=== PATIENT | male | born 1965 | race Two or more races ===

== ENCOUNTER 2021-08-09 06:29 | Outpatient (REF) | payer OTHER, SELFPAY ==
[2021-08-09 07:53] LABS: Alanine Aminotransferase 21 U/L (0-40); Albumin Level 4.3 g/dL (3.5-5.0); Alkaline Phosphatase 103 U/L (39-117); Anion Gap 10 (12-20); Aspartate Amino Transferase 13 U/L (5-37); Bilirubin Total 0.5 mg/dL (0.0-1.0); Blood Urea Nitrogen 13 mg/dL (9-16); Calcium 10.2 mg/dL (8.4-10.2); Carbon Dioxide 30 mmol/L (22-29); Chloride 103 mmol/L (96-108); Cholesterol 236 mg/dL; Estimated Glomerular Filt Rate > 60; Glucose Fasting 247 mg/dL (60-99); HDL Cholesterol 36 mg/dL; LDL Cholesterol Calculated 143 mg/dl; Potassium 4.4 mmol/L (3.3-5.1); Sodium 139 mmol/L (135-145); Total Protein 7.4 g/dL (6.5-8.0); Triglycerides 288 mg/dL
[2021-08-09 08:14] LABS: Creatinine Urine 152.02 mg/dL; Microalbum/Creatinine Ratio Ur 6.5 ug/mg cr
[2021-08-09 08:21] LABS: Estimated Average Glucose 226 mg/dL; Hemoglobin A1c % 9.5 %
[2021-08-14 14:37] LABS: Vitamin D 25-OH, D2 7 ng/mL; Vitamin D 25-OH, D3 13 ng/mL; Vitamin D 25-OH, Total 20 ng/mL (30-100)
== END 2021-08-09 06:30 | disposition home or self-care (01) ==
LOC: HO.LAB 06:29
PROVIDERS: PCP Internal Medicine; Visit Provider Internal Medicine
DX: E11.40 Type 2 diabetes mellitus with diabetic neuropathy, unspecified (principal); E55.9 Vitamin D deficiency, unspecified; E78.5 Hyperlipidemia, unspecified
CPT/HCPCS: 36415; 80053; 80061; 82043; 82306; 83036

== ENCOUNTER 2022-01-08 10:00 | Outpatient (REF) | payer OTHER, SELFPAY ==
[2022-01-08 10:15] LABS: MANUAL DIFF FLAG NO
[2022-01-08 10:53] LABS: Basophils Percent Auto 0.5 % (0-2); Eosinophils Absolute Auto 0.1 X10*3/uL (0.0-0.4); Eosinophils Percent Auto 2.3 % (0-4); Hematocrit 42.9 % (42.0-52.0); Hemoglobin 14.1 g/dl (14.0-18.0); Imm Gran Abs Auto 0.01 X10*3/uL (0.00-0.03); Imm Gran Pct Auto 0.2 % (0.0-0.4); Lymphocytes Absolute Auto 2.2 X10*3/uL (1.2-4.9); Mean Corpuscular HGB Conc 32.9 g/dl (31.0-36.0); Mean Corpuscular Hemoglobin 28.8 pg (27.0-33.0); Mean Corpuscular Volume 87.6 fL (80.0-98.0); Mean Platelet Volume 10.7 fL (9.4-12.4); Monocytes Absolute Auto 0.6 X10*3/uL (0.1-1.2); Monocytes Percent Auto 10.8 % (2-11); Neutrophils Absolute Auto 2.7 x10*3/uL (2.0-8.3); Neutrophils Percent Auto 47.2 % (45-73); Platelet Count 216 X10*3/uL (160-400); Red Cell Distribution Width 12.7 % (11.0-16.0); White Blood Count 5.7 X10*3/uL (4.8-10.8)
[2022-01-08 11:15] LABS: Alanine Aminotransferase 20 U/L (0-40); Albumin Level 4.4 g/dL (3.5-5.0); Alkaline Phosphatase 93 U/L (39-117); Anion Gap 13 (12-20); Aspartate Amino Transferase 14 U/L (5-37); Bilirubin Total 0.6 mg/dL (0.0-1.0); Blood Urea Nitrogen 12 mg/dL (9-16); Calcium 10.1 mg/dL (8.4-10.2); Carbon Dioxide 29 mmol/L (22-29); Chloride 100 mmol/L (96-108); Cholesterol 256 mg/dL; Estimated Glomerular Filt Rate > 60; Glucose Fasting 218 mg/dL (60-99); HDL Cholesterol 35 mg/dL; Iron 106 mcg/dL (45-160); LDL Cholesterol Calculated 168 mg/dl; Percent Iron Saturation 28 % (15-50); Sodium 137 mmol/L (135-145); Total Iron Binding Capacity 376 mcg/dL (228-428); Total Protein 7.3 g/dL (6.5-8.0); Triglycerides 265 mg/dL; Unsaturated Iron Binding 270 ug/dL
[2022-01-08 11:41] LABS: Vitamin D 25-OH Total 19.7 ng/mL (>30)
[2022-01-08 11:51] LABS: Creatinine Urine 75.38 mg/dL; Microalbum/Creatinine Ratio Ur 6.6 ug/mg cr
== END 2022-01-08 10:01 | disposition home or self-care (01) ==
LOC: HO.LAB 10:00
PROVIDERS: PCP Internal Medicine; Visit Provider Internal Medicine
DX: E11.9 Type 2 diabetes mellitus without complications (principal); E78.5 Hyperlipidemia, unspecified; D64.9 Anemia, unspecified; E55.9 Vitamin D deficiency, unspecified
CPT/HCPCS: 36415; 80053; 80061; 82043; 82306; 83540; 85025

== ENCOUNTER 2022-05-27 09:59 | Outpatient (REF) | payer OTHER, SELFPAY ==
[2022-05-27 11:09] LABS: Microalbum/Creatinine Ratio Ur 5.6 ug/mg cr
[2022-05-27 11:13] LABS: Alanine Aminotransferase 21 U/L (0-40); Albumin Level 4.3 g/dL (3.5-5.0); Alkaline Phosphatase 73 U/L (39-117); Anion Gap 12 (12-20); Aspartate Amino Transferase 15 U/L (5-37); Bilirubin Total 0.7 mg/dL (0.0-1.0); Blood Urea Nitrogen 11 mg/dL (9-16); Calcium 9.8 mg/dL (8.4-10.2); Carbon Dioxide 25 mmol/L (22-29); Chloride 107 mmol/L (96-108); Cholesterol 170 mg/dL; Estimated Glomerular Filt Rate > 60; Glucose Fasting 123 mg/dL (60-99); HDL Cholesterol 36 mg/dL; LDL Cholesterol Calculated 108 mg/dl; Potassium 4.1 mmol/L (3.3-5.1); Sodium 140 mmol/L (135-145); Total Protein 6.9 g/dL (6.5-8.0); Triglycerides 132 mg/dL
[2022-05-27 11:33] LABS: Vitamin D 25-OH Total 25.4 ng/mL (>30)
== END 2022-05-27 10:00 | disposition home or self-care (01) ==
LOC: HO.LAB 09:59
PROVIDERS: PCP Internal Medicine; Visit Provider Internal Medicine
DX: Z00.00 Encounter for general adult medical examination without abnormal findings (principal); E78.5 Hyperlipidemia, unspecified; E11.9 Type 2 diabetes mellitus without complications; E55.9 Vitamin D deficiency, unspecified
CPT/HCPCS: 36415; 80053; 80061; 82043; 82306

== ENCOUNTER 2022-10-07 10:31 | Outpatient (REF) | payer OTHER, SELFPAY ==
[2022-10-07 12:10] LABS: Alanine Aminotransferase 25 U/L (0-40); Albumin Level 4.2 g/dL (3.5-5.0); Alkaline Phosphatase 82 U/L (39-117); Anion Gap 12 (12-20); Aspartate Amino Transferase 17 U/L (5-37); Bilirubin Total 0.7 mg/dL (0.0-1.0); Blood Urea Nitrogen 10 mg/dL (9-16); Carbon Dioxide 27 mmol/L (22-29); Chloride 105 mmol/L (96-108); Cholesterol 120 mg/dL; Estimated Glomerular Filt Rate > 60; Glucose Fasting 183 mg/dL (60-99); HDL Cholesterol 35 mg/dL; LDL Cholesterol Calculated 73 mg/dl; Potassium 4.2 mmol/L (3.3-5.1); Sodium 140 mmol/L (135-145); Total Protein 7.3 g/dL (6.5-8.0); Triglycerides 64 mg/dL
[2022-10-07 12:19] LABS: Vitamin D 25-OH Total 32.5 ng/mL (>30)
[2022-10-07 12:29] LABS: Creatinine Urine 85.89 mg/dL; Microalbum/Creatinine Ratio Ur 6.9 ug/mg cr
== END 2022-10-07 10:32 | disposition home or self-care (01) ==
LOC: HO.LAB 10:31
PROVIDERS: PCP Internal Medicine; Visit Provider Internal Medicine
DX: E78.2 Mixed hyperlipidemia (principal); E11.9 Type 2 diabetes mellitus without complications; E55.9 Vitamin D deficiency, unspecified
CPT/HCPCS: 36415; 80053; 80061; 82043; 82306

== ENCOUNTER 2022-10-24 09:14 | Outpatient (REF) | payer OTHER, SELFPAY ==
--- NOTE | ~2022-10-24 | US_ITS ---
EXAMINATION: US ABDOMEN LIMITED CLINICAL INFORMATION: Umbilical hernia without obstruction or gangrene. COMPARISON: CT abdomen and pelvis 05/07/2019. TECHNIQUE: Real-time imaging of the umbilicus. FINDINGS: Ultrasound of the umbilicus demonstrates a fat-containing hernia in the area indicated by the patient, similar to the previous CT scan. This measures 1.3 cm in maximal dimension. US/US abdomen limited IMPRESSION: Fat-containing umbilical hernia.
== END 2022-10-24 09:15 | disposition home or self-care (01) ==
LOC: HO.US 09:14
PROVIDERS: PCP Internal Medicine; Visit Provider Internal Medicine
DX: K42.9 Umbilical hernia without obstruction or gangrene (principal)
CPT/HCPCS: 76705; 99202

== ENCOUNTER 2022-11-20 09:39 | Day surgery (SDC) | payer OTHER, SELFPAY ==
[2022-11-17 14:29] VITALS: BMI 27.2
--- NOTE | 2022-11-19 09:03 | MHC.SHP ---
Pre-Procedural Eval Section A Date of Service: 11/19/22 The patient is an INPATIENT: No Changes since office visit: No Cold of Flu in the past 2 weeks, No New Medical Problems, No Changes in Medication and No Patient answered all questions The History & Physical has been completed within 30 days and I have reviewed it.: Yes Section B Chief Complaint: Umbilical hernia without obstruction or gangrene Allergies: Allergies Allergy/AdvReac Type Severity Reaction Status Date / Time No Known Allergies Allergy Verified 11/17/22 14:28 Plan I have reviewed the history and physical and performed a pertinent physical examination on my patient. No changes have occurred unless specified. Time Spent With Patient Time: Total time managing care of this patient today ____ minutes.
[2022-11-20 10:57] LABS: Glucose, Whole Blood 146 mg/dL (60-115)
[2022-11-20 11:27] VITALS: BP 134/97; PULSE 67; RESP 18; TEMP 36.1; O2SAT 97
[2022-11-20] MEDS: Lactated Ringers 1,000 ML 50 ML IVCONT (11:38)
--- NOTE | 2022-11-20 12:29 | HO.ANESPROP2 ---
HPI - Anesthesia Eval Consult details Narrative: for hrnia repair PMFSH Active Problems Active Problems: All Active Problems (Updated 11/17/22 @ 14:29 by Justa Joy RN) Fall (Acute) Right-sided chest pain (Acute) Essential hypertension (Acute) Onychomycosis (Acute) Hypovitaminosis D (Acute) Physical exam (Acute) Umbilical hernia (Acute) Mixed hyperlipidemia (Acute) Diabetes mellitus (Acute) Past Medical History Medical History (Updated 11/17/22 @ 14:29 by Justa Joy RN) Diabetes mellitus History of renal calculi HTN (hypertension) Mixed hyperlipidemia Sciatica Family History Family History Father Diabetes Mother No problems noted. Maternal Grandmother No problems noted. Maternal Grandfather Stroke Paternal Grandmother Diabetes Paternal Grandfather No problems noted. Family history of problems with anesthesia: No Surgical History Surgical History (Updated 11/17/22 @ 14:27 by Justa Joy RN) History of esophagogastroduodenoscopy (EGD) History of Problems with Anesthesia: No Social History Social History Housing: Apartment Are you a primary animal care attendant to a significant other at home: No Do you presently have visiting nurse or other home services: No Alcohol intake: never Patient Tobacco Use Status: Never used Tobacco Tobacco use type: Cigarette e-Cigarette/Vaping Use: Never Used Second Hand Smoke Exposure: No Use of substances other than those prescribed or required for medical reasons: No Have you been hit, kicked, punched, or otherwise hurt by someone within the past year? If so, by whom?: No Are you DNR?: No Advance Directives: No Advance Directives Information Provided: Yes Advance Directives on File: No Recently lost weight without trying: No Nutrition Risks: No Nutritional Risk Poor oral hygiene: No service: No Current occupational status: employed Current occupational exposures/hazards: No Cognitive needs: No Hearing needs: No Vision needs: Yes Meds Allergies Allergy/AdvReac Type Severity Reaction Status Date / Time No Known Allergies Allergy Verified 11/17/22 14:28 Active Medications: Current Medications Lactated Ringer's (Lr) 1,000 mls @ 50 mls/hr IVCONT .Q20H ROME Last Admin: 11/20/22 11:38 Dose: 50 mls/hr Exam Exam Date and Time: November 20, 2022 1229 Height,Weight and Vital Signs: Height 5 ft 11 in Weight 88.451 kg Last Vital Signs Temp 96.9 F 11/20/22 11:27 Pulse 67 11/20/22 11:27 Resp 18 11/20/22 11:27 BP 134/97 H 11/20/22 11:27 Pulse Ox 97 11/20/22 11:27 O2 Del Method Room Air 11/20/22 11:27 Pertinent Lab Results Pertinent Lab Results: Laboratory Tests 11/20/22 10:53 POC Glucose 146 H Airway Mallampati Class: I TM Dist: >3cm Neck ROM: Full Loose/Missing/Broken Teeth: No Heart: rr Lungs: cta Assessment and Plan Assessment Anesthesia Assessment: Anesthesia Plan Discussed and Chart Reviewed Final Anesthetic Review Family History of Problems with Anesthesia: No History of Problems with Anesthesia: No NPO: Yes ASA Class: III Final Preanesthetic Review: No Changes in Pt Med Stat, Meds/Allgs Chart Reviewed, Consent Obtained/Reviewed and Anes Risks/Benef Reviewed Patient Risk: Low Procedure Risk: Low Anesthetic Plan Anesthetic Plan: GA Disposition: Standard PACU
[2022-11-20 13:01] VITALS: BP 125/84; PULSE 63; RESP 12; TEMP 36.2; O2SAT 94
[2022-11-20 13:06] VITALS: BP 127/93; PULSE 73; RESP 16; O2SAT 96
[2022-11-20 13:11] VITALS: BP 135/92; PULSE 65; RESP 16; O2SAT 100
[2022-11-20 13:16] VITALS: BP 131/89; PULSE 68; RESP 16; O2SAT 100
--- NOTE | 2022-11-20 13:19 | W.PM.OPN ---
Operative Note Operative Note Date of Service: 11/20/22 Narrative: Preoperative diagnosis: [] Incarcerated umbilical hernia Postop diagnosis: [] Same Procedure [] repair incarcerated umbilical hernia with Bard mesh Surgeon: [] Nicholas Advisor Consultant: [] Greg GOLDEN Type of Anesthesia: [] LMA Indication for surgery: [] Approximately 2 cm incarcerated umbilical hernia with large hernia sac and omental contents. Findings: [] Patient brought to the operating room, placed on operative table in a supine position, after adequate level of LMA anesthesia was induced, the patient's abdomen was prepped and draped in usual sterile fashion. Using an infraumbilical curvilinear incision, this carried down through skin, subcutaneous tissue, where hernia sac was identified and dissected off the posterior aspect of the umbilicus. A very large sac was dissected down to the fascia and opened. Incarcerated omental contents along with hernia sac were amputated. The fascia margins were circumferentially cleared. A Bard mesh was placed in the defect and the superficial layer of the mesh was circumferentially sutured to the surrounding fascia using interrupted 0 Ethibond suture. At the Completion the procedure, mesh was in good position with no tension and no gallops. Wound was irrigated, secured hemostasis, and closed in the following manner; posterior aspect of the umbilicus was tacked to the wound floor using interrupted 3-0 Vicryl sutures. Skin was closed using interrupted inverted dermal 3-0 Vicryl sutures followed by Steri-Strips and sterile dressings. Wound was infiltrated 0.5% Marcaine at completion of the procedure. Sponge, needle, and instrument counts were reported to be correct. Patient tolerated the procedure well and emerged from anesthesia stable condition. EBL minimal
[2022-11-20 13:27] VITALS: BP 125/84; PULSE 68; RESP 16; TEMP 36.4; O2SAT 100
== END 2022-11-20 14:00 | disposition home or self-care (01) ==
PROVIDERS: PCP Internal Medicine; Visit Provider Surgery
PROC: (CPT 49592; principal; 2022-11-20 12:00)
DX: K42.0 Umbilical hernia with obstruction, without gangrene (principal); I10 Essential (primary) hypertension; E78.2 Mixed hyperlipidemia; E11.9 Type 2 diabetes mellitus without complications; Z87.891 Personal history of nicotine dependence
CPT/HCPCS: 49592; 82947; 88302; C1781; J0690; J1885; J2405; J3010

== ENCOUNTER → 2022-11-20 09:39 | Outpatient (BNV) | payer OTHER, SELFPAY | PROVIDERS: PCP Internal Medicine; Visit Provider Surgery | DX: K42.0 Umbilical hernia with obstruction, without gangrene (principal) | CPT/HCPCS: 49592 ==

== ENCOUNTER 2022-12-01 11:48 | Outpatient (AMB) | payer OTHER, SELFPAY ==
--- NOTE | 2022-12-01 12:02 | MHC.OFFVIS ---
Intake Intake Visit Reasons: S/P umbilical hernia repair w/mesh Intake Note: Patient here s/p umbilical hernia repair. Reports incisions healing well but very itchy. Denies bleeding, oozing, tenderness. Taking ibuprofen as needed. 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 He has no issues or complaints. Has minimal incisional discomfort. He is tolerating a diet. Having normal bowel habits. Patient is increasing his activity level. [facility] Medical History Diabetes mellitus History of renal calculi HTN (hypertension) Mixed hyperlipidemia Sciatica Surgical History History of esophagogastroduodenoscopy (EGD) Family History Father Diabetes Mother No problems noted. Maternal Grandmother No problems noted. Maternal Grandfather Stroke Paternal Grandmother Diabetes Paternal Grandfather No problems noted. Social History Housing: Apartment Are you a primary tree care foreman to a significant other at home: No Do you presently have visiting nurse or other home services: No Alcohol intake: never Patient Tobacco Use Status: Never used Tobacco Tobacco use type: Cigarette e-Cigarette/Vaping Use: Never Used Second Hand Smoke Exposure: No service: No Current occupational status: employed Current occupational exposures/hazards: No Cognitive needs: No Hearing needs: No Vision needs: Yes Physical Exam GI Other: Abdomen soft. Wound clean dry and intact. Assessment & Plan Assessment & Plan (1) Umbilical hernia: Code(s): K42.9 - Umbilical hernia without obstruction or gangrene Plan Patient has been given local instructions and should avoid stress activities for next 3-4 weeks. Will follow-up p.r.n.. Coding Level of Care Code Global (12121) Diagnoses Umbilical hernia K42.9
== END 2022-12-01 12:11 | disposition home or self-care (01) ==
PROVIDERS: PCP Internal Medicine; Visit Provider Surgery
DX: K42.9 Umbilical hernia without obstruction or gangrene (principal)
CPT/HCPCS: 99213

== ENCOUNTER → 2022-12-01 11:48 | Outpatient (BNVA) | payer OTHER, SELFPAY | PROVIDERS: PCP Internal Medicine; Visit Provider Surgery | DX: K42.9 Umbilical hernia without obstruction or gangrene (principal) | CPT/HCPCS: 99212 ==

== ENCOUNTER 2023-02-25 14:32 | Outpatient (AMB) | payer OTHER, SELFPAY ==
[2023-02-25 14:34] VITALS: BP 118/72; PULSE 76; O2SAT 97; BMI 27.2
--- NOTE | 2023-02-25 14:34 | MHC.PC.OV ---
Vital Signs 02/25/23 14:34 Height 5 ft 11 in Weight 195 lb BMI 27.2 BP 118/72 Blood Pressure Location Lt brachial Position Sitting Pulse 76 Pulse Source Pulse Oximeter Pulse Oximetry (%) 97 Oxygen Delivery Method Room Air Intake Visit Reasons: dm [place] Boat[employer] Required: No Accompanied by: Self / Same As Patient Allergies No Known Allergies Allergy (Verified 02/25/23 14:50) Medication List - Last Reconciled 02/25/23 by Marisol Ribeiro MD atorvastatin 80 mg PO BEDTIME 90 days cholecalciferol (vitamin D3) 25 mcg PO DAILY 90 days lisinopril 5 mg PO DAILY 90 days metformin 1,000 mg PO BID 90 days sitagliptin phosphate (Januvia) 25 mg PO DAILY 90 days Tobacco use date assessed: 02/25/23 Dental Screening Dental Screen Date: 02/25/23 Did you have a dental visit in the last 12 months?: Yes Did you have a dental problem in the last 6 months where you did not have access to dental care?: No Was dental information given to patient?: Patient has dentist HPI HPI Comments History of Present Illness Details This is a 57-year-old male with diabetes mellitus type 2, hypertension, hyperlipidemia and low vitamin-D that complains of muscle spasm in left upper back and left arm that bothers him occasionally. No previous trauma. A1c close to goal and I will increase Januvia from 25 mg to 50 mg. Blood pressure stable. LDL stable. On vitamin-D supplements for low vitamin-D. No chest pain or shortness of breath. [facility]LY [facility], [facility] Medical History (Updated 02/25/23 @ 15:21 by Marisol Ribeiro MD) Sciatica History of renal calculi HTN (hypertension) Mixed hyperlipidemia Diabetes mellitus Surgical History History of esophagogastroduodenoscopy (EGD) Family History Father Diabetes Mother No problems noted. Maternal Grandmother No problems noted. Maternal Grandfather Stroke Paternal Grandmother Diabetes Paternal Grandfather No problems noted. Social History Housing: Apartment Are you a primary hospice care sales consultant to a significant other at home: No Do you presently have visiting nurse or other home services: No Alcohol intake: never Patient Tobacco Use Status: Never used Tobacco Tobacco use type: Cigarette e-Cigarette/Vaping Use: Never Used Second Hand Smoke Exposure: No service: No Current occupational status: employed Current occupational exposures/hazards: No Cognitive needs: No Hearing needs: No Vision needs: Yes Questionnaire Thrive Questionnaire Date Thrive assessed: 08/12/21 AUDIT C Alcohol Use Questionnaire (AUDIT-C) 1. How often do you have a drink containing alcohol?: Never Total Score: 0 DAYLIN-7 AMB Questionnaire DAYLIN-7 Date DAYLIN - 7 assessed: 08/12/21 Source: Developed by Drs. Raman Villarreal, Hilary Rosales, Chava Guzman and colleagues, with an educational giselle from [employer]. Review of Systems Const All systems reviewed & are unremarkable except as noted in HPI and below Eyes Reports no additional complaints, Denies change in vision and Denies other visual disturbances Card Denies chest pain at rest, Denies chest pain with activity, Denies edema, Denies irregular heart rhythm, Denies claudication, Denies dyspnea, Denies dyspnea on exertion, Denies orthopnea, Denies paroxysmal nocturnal dyspnea and Denies slow heart rate Resp Denies cough, Denies dyspnea and Denies dyspnea on exertion GI Denies abdominal pain, Denies change in bowel habits, Denies excessive flatus, Denies nausea and Denies vomiting Denies urinary hesitancy, Denies urinary incontinence and Denies urinary urgency Musc Denies abnormal gait, Denies atrophy, Denies deformity and Denies limited range of motion Skin/Breast Denies bleeding lesions, Denies changing lesions and Denies rash Neuro Denies abnormal gait and Denies lack of coordination Physical exam (Primary Care) Vital Signs: Last Vital Signs Pulse 76 02/25/23 14:34 BP 118/72 02/25/23 14:34 Pulse Ox 97 02/25/23 14:34 Oxygen Delivery Method Room Air 02/25/23 14:34 BMI result Body Mass Index 27.2 Tobacco/Smoking Status: Tobacco use Status Tobacco use date assessed 02/25/23 02/25/23 14:35 Patient Tobacco Use Status Never used Tobacco 02/25/23 14:35 Tobacco use type Cigarette 02/25/23 14:35 e-Cigarette/Vaping Use Never Used 02/25/23 14:35 Thrive Assessment: Date of Thrive Assessment Date Thrive assessed 08/12/21 02/25/23 14:35 Eyes General: appearance normal, both eyes and all related structures Eyelids: Yes eyelids normal Conjunctivae: conjunctivae normal Neck Neck: Yes normal visual inspection and Yes supple Resp Effort & Inspection: normal respiratory effort Auscultation: clear to auscultation bilaterally Cardio Jugular venous distension: no JVD Rate: regular rate Rhythm: regular rhythm Heart sounds: S1 normal heart sound present and S2 normal heart sound present Extrem General: Yes full ROM Results AMB Hemoglobin A1c AMB Hemoglobin A1c 7.3 % Last Edit by MARY JO Dunham on 02/25/23 14:50 Results Reviewed Results Reviewed: Laboratory Last Values Hgb A1c (Clinic) 7.3 % (4.0-6.0) H 02/25/23 14:34 Assessment and Plan Assessment & Plan (1) Diabetes mellitus: Code(s): E11.9 - Type 2 diabetes mellitus without complications Plan: Continue metformin. Increase Januvia to 50 mg. A1c goal is equal or less than 7%. (2) Mixed hyperlipidemia: Code(s): E78.2 - Mixed hyperlipidemia Plan: Continue statins. LDL goal is less than 70. (3) Hypovitaminosis D: Code(s): E55.9 - Vitamin D deficiency, unspecified Plan: Continue vitamin-D supplements. (4) Essential hypertension: Code(s): I10 - Essential (primary) hypertension Plan: Continue lisinopril. Blood pressure goal is equal or less than 130/80. (5) Muscle spasm: Code(s): M62.838 - Other muscle spasm Plan: Start methocarbamol as needed. Orders: Orders AMB Hemoglobin A1c Today E11.9 - Type 2 diabetes mellitus without complications Microalbumin, Random (w Creat) 3 Months E11.9 - Type 2 diabetes mellitus without complications Vitamin D 25-OH Total 3 Months E55.9 - Vitamin D deficiency, unspecified Comprehensive [place]. Panel Fast 3 Months E11.9 - Type 2 diabetes mellitus without complications Lipid Panel 3 Months E78.5 - Hyperlipidemia, unspecified Medications: New sitagliptin phosphate (Januvia) 50 mg PO DAILY 90 tabs 1RF 90 days methocarbamol 750 mg PO Q8H PRN 21 tabs 0RF muscle spasticity 7 days Discontinued sitagliptin phosphate (Januvia) Discontinued Reason: Patient Completed Course 25 mg PO DAILY 90 days 90 tabs 1RF E11.9 - Type 2 diabetes mellitus without complications Coding Level of Care Code Est Pt Level 4 (94553) Diagnoses Diabetes mellitus E11.9 Mixed hyperlipidemia E78.2 Hypovitaminosis D E55.9 Essential hypertension I10 Muscle spasm M62.838 Time Spent (min) 22
== END 2023-02-25 14:57 | disposition home or self-care (01) ==
PROVIDERS: PCP Internal Medicine; Visit Provider Internal Medicine
DX: E11.9 Type 2 diabetes mellitus without complications (principal); E78.2 Mixed hyperlipidemia; E55.9 Vitamin D deficiency, unspecified; I10 Essential (primary) hypertension; M62.838 Other muscle spasm
CPT/HCPCS: 83036; 99214

== ENCOUNTER 2023-02-26 07:23 | Outpatient (REF) | payer OTHER, SELFPAY ==
[2023-02-26 08:44] LABS: Alanine Aminotransferase 26 U/L (0-40); Albumin Level 4.3 g/dL (3.5-5.0); Alkaline Phosphatase 104 U/L (39-117); Anion Gap 10 (12-20); Aspartate Amino Transferase 15 U/L (5-37); Bilirubin Total 0.3 mg/dL (0.0-1.0); Blood Urea Nitrogen 12 mg/dL (9-16); Calcium 9.5 mg/dL (8.4-10.2); Carbon Dioxide 29 mmol/L (22-29); Chloride 103 mmol/L (96-108); Cholesterol 211 mg/dL (<200); Estimated Glomerular Filt Rate > 60; Glucose Fasting 177 mg/dL (60-99); HDL Cholesterol 33 mg/dL (>40); LDL Cholesterol Calculated 119 mg/dL (<100); Potassium 3.8 mmol/L (3.3-5.1); Sodium 138 mmol/L (135-145); Total Protein 7.6 g/dL (6.5-8.0); Triglycerides 297 mg/dL (<150)
[2023-02-26 08:53] LABS: Creatinine Urine 98.51 mg/dL
[2023-02-26 09:01] LABS: Vitamin D 25-OH Total 27.8 ng/mL (>30)
== END 2023-02-26 07:24 | disposition home or self-care (01) ==
LOC: HO.LAB 07:23
PROVIDERS: PCP Internal Medicine; Visit Provider Internal Medicine
DX: E55.9 Vitamin D deficiency, unspecified (principal); E11.9 Type 2 diabetes mellitus without complications; E78.5 Hyperlipidemia, unspecified
CPT/HCPCS: 36415; 80053; 80061; 82043; 82306; 82570

== ENCOUNTER 2023-06-04 09:57 | Outpatient (AMB) | payer OTHER, SELFPAY ==
--- NOTE | 2023-06-04 10:00 | A.OFFPC_ITS ---
Vital Signs 06/04/23 10:01 Height 5 ft 11 in Weight 198 lb BMI 27.6 BP 134/82 Blood Pressure Location Lt brachial Position Sitting Intake Visit Reasons: Annual Exam Intake Note: Patient here for a physical exam Health Services Administrator Required: No Accompanied by: Self / Same As Patient Allergies No Known Allergies Allergy (Verified 06/04/23 10:20) Medication List - Last Reconciled 06/04/23 by Marisol Ribeiro MD cholecalciferol (vitamin D3) 25 mcg PO DAILY 90 days metformin 1,000 mg PO BID 90 days Tobacco use date assessed: 06/04/23 Dental Screening Dental Screen Date: 06/04/23 Did you have a dental visit in the last 12 months?: No Did you have a dental problem in the last 6 months where you did not have access to dental care?: No Was dental information given to patient?: Patient has dentist HPI HPI Comments History of Present Illness Details This is a 57-year-old male with diabetes mellitus type 2 that comes for his physical exam. A1c elevated and he ran out of his Januvia 50 mg. I will add Jardiance 10 mg. Will continue metformin. A1c goal is equal or less than 7%. He declines colonoscopy and also Cologuard. Last LDL was not on goal and he ran out of atorvastatin 80 mg which will be refill. No chest pain or shortness of breath. [facility] Medical History Sciatica History of renal calculi HTN (hypertension) Mixed hyperlipidemia Diabetes mellitus Surgical History (Updated 06/04/23 @ 10:35 by Marisol Ribeiro MD) History of herniorrhaphy History of esophagogastroduodenoscopy (EGD) Family History Father Diabetes Mother No problems noted. Maternal Grandmother No problems noted. Maternal Grandfather Stroke Paternal Grandmother Diabetes Paternal Grandfather No problems noted. Social History Housing: Apartment Are you a primary family member caretaker to a significant other at home: No Do you presently have visiting nurse or other home services: No Alcohol intake: never Patient Tobacco Use Status: Never used Tobacco Tobacco use type: Cigarette e-Cigarette/Vaping Use: Never Used Second Hand Smoke Exposure: No service: No Current occupational status: employed Current occupational exposures/hazards: No Cognitive needs: No Hearing needs: No Vision needs: Yes Questionnaire PHQ-9 Over the last 2 weeks, how often have you been bothered by any of the following problems? 1. Little interest or pleasure in doing things: not at all 2. Feeling down, depressed, or hopeless: not at all 3. Trouble falling or staying asleep, or sleeping too much: not at all 4. Feeling tired or having little energy: not at all 5. Poor appetite or overeating: not at all 6. Feeling bad about yourself - or that you are a failure or have let yourself or your family down: not at all 7. Trouble concentrating on things, such as reading the newspaper or watching television: not at all 8. Moving or speaking so slowly that other people could have noticed. Or the opposite - being so fidgety or restless that you have been moving around a lot more than usual: not at all 9. Thoughts that you would be better off or of hurting yourself in some way: not at all Total score: 0 Depression Screening Interpretation: Negative Depression Screening Done: Yes 76272 - PHQ-9 Billing: Yes Source: Developed by Drs. Raman Villarreal, Hilary Rosales, Chava Guzman and colleagues, with an educational giselle from [employer]. Thrive Questionnaire Date Thrive assessed: 06/04/23 I am a: Patient What is your living situation today?: I have a steady place to live Within the past 12 months, did the food you bought not last and you didn't have the money to get more?: Never true Within the past 12 months, did you worry whether your food would run out before you got money to buy more?: Never true Do you have trouble paying for medicines?: No Do you have trouble getting transportation to medical appointments?: No Do you have trouble paying your heating and electricity bill?: No Do you have trouble taking care of your child, family member or friend?: No Do you have trouble with day-to-day activities such as bathing, preparing meals, shopping, managing finances, etc.?: No Are you currently unemployed and looking for a job?: No Are you interested in more education?: No Please select the resources that you would like help with: None Currently or been in a relationship where the following occur: no concerns reported THRIVE Score: 0 AUDIT C Alcohol Use Questionnaire (AUDIT-C) 1. How often do you have a drink containing alcohol?: Never Total Score: 0 Score Reviewed/Action Taken: No DAYLIN-7 AMB Questionnaire DAYLIN-7 Date DAYLIN - 7 assessed: 06/04/23 Feeling nervous, anxious, or on edge: 0 = Not at all Not being able to stop or control worryin = Not at all Worrying too much about different things: 0 = Not at all Trouble relaxin = Not at all Being so restless that it is hard to sit still: 0 = Not at all Becoming easily annoyed or irritable: 0 = Not at all Feeling afraid as if something awful might happen: 0 = Not at all Total DAYLIN-7 score (0-4 normal; 5-9 mild; 10-14 moderate; 15-21 severe): 0 Source: Developed by Drs. Raman Villarreal, Hilary Rosales, Chava Guzman and colleagues, with an educational giselle from [employer]. DAYLIN-7 Assessment Billing DAYLIN-7 Assessment Tool: DAYLIN-7 Assessment 21140 Review of Systems Const All systems reviewed & are unremarkable except as noted in HPI and below Eyes Reports no additional complaints, Denies change in vision and Denies other visual disturbances Card Denies chest pain at rest, Denies chest pain with activity, Denies edema, Denies irregular heart rhythm, Denies claudication, Denies dyspnea, Denies dyspnea on exertion, Denies orthopnea, Denies paroxysmal nocturnal dyspnea and Denies slow heart rate Resp Denies cough, Denies dyspnea and Denies dyspnea on exertion GI Denies abdominal pain, Denies change in bowel habits, Denies excessive flatus, Denies nausea and Denies vomiting Denies urinary hesitancy, Denies urinary incontinence and Denies urinary urgency Musc Denies abnormal gait, Denies atrophy, Denies deformity and Denies limited range of motion Skin/Breast Denies bleeding lesions, Denies changing lesions and Denies rash Neuro Denies abnormal gait, Denies behavioral changes, Denies confusion and Denies lack of coordination Psych Denies behavioral changes and Denies confusion Physical exam (Primary Care) Vital Signs: Last Vital Signs BP 134/82 06/04/23 10:01 BMI result Body Mass Index 27.6 Tobacco/Smoking Status: Tobacco use Status Tobacco use date assessed 06/04/23 06/04/23 10:08 Patient Tobacco Use Status Never used Tobacco 06/04/23 10:08 Tobacco use type Cigarette 06/04/23 10:08 e-Cigarette/Vaping Use Never Used 06/04/23 10:08 PHQ-9: PHQ-9 Score PHQ-9: Total score 0 06/04/23 10:08 Depression Screening Interpretation: Negative Thrive Assessment: Date of Thrive Assessment Date Thrive assessed 06/04/23 06/04/23 10:08 Currently or been in a relationship where the following occur: no concerns reported Const General: No confusion Orientation/consciousness: patient oriented x3 and No confusion HENMT Head: Yes normal to inspection, Yes normocephalic and Yes atraumatic Ears: external ears normal Eyes General: appearance normal, both eyes and all related structures Eyelids: Yes eyelids normal Conjunctivae: conjunctivae normal Neck Neck: Yes normal visual inspection and Yes supple Resp Effort & Inspection: normal respiratory effort Auscultation: clear to auscultation bilaterally Cardio Jugular venous distension: no JVD Rate: regular rate Rhythm: regular rhythm Heart sounds: S1 normal heart sound present and S2 normal heart sound present GI Inspection: Yes normal to inspection Palpation (GI): Soft to palpation and nontender Auscultation: normal bowel sounds Skin General skin exam: no rashes or lesions noted Neuro General: patient oriented x3, no focal motor deficits and No confusion Extrem General: Yes full ROM Psych Appearance: grossly normal Results AMB Hemoglobin A1c AMB Hemoglobin A1c 8.3 % Last Edit by MARY JO Comer on 06/04/23 10:1 2 Results Reviewed Results Reviewed: Laboratory Last Values Hgb A1c (Clinic) 8.3 % (4.0-6.0) H 06/04/23 10:00 Assessment and Plan Assessment & Plan (1) Physical exam: Code(s): Z00.00 - Encounter for general adult medical examination without abnormal findings Plan: Repeat in a year. (2) Diabetes mellitus: Code(s): E11.9 - Type 2 diabetes mellitus without complications Plan: Continue metformin. Start Jardiance. Hold Januvia. A1c goal is equal or less than 7%. Orders: Orders Microalbumin, Random (w Creat) Today E11.9 - Type 2 diabetes mellitus without complications Vitamin D 25-OH Total Today E55.9 - Vitamin D deficiency, unspecified Comprehensive [place]. Panel Fast Today I10 - Essential (primary) hypertension AMB Hemoglobin A1c Today E11.9 - Type 2 diabetes mellitus without complications Lipid Panel Today E78.5 - Hyperlipidemia, unspecified Medications: New empagliflozin (Jardiance) 10 mg PO DAILY 30 days 30 tabs 6RF E11.9 - Type 2 diabetes mellitus without complications atorvastatin 80 mg PO BEDTIME 90 days 90 tabs 3RF E78.2 - Mixed hyperlipidemia atorvastatin 80 mg PO BEDTIME 90 days 90 tabs 0RF Coding Level of Care Code Est Pt Prev Care 40-64y(17885) Diagnoses Physical exam Z00.00 Diabetes mellitus E11.9 Additional Codes DAYLIN-7 Assessment Billing - DAYLIN-7 Assessment Tool: DAYLIN-7 Assessment 61475 ([id number]) Time Spent (min) 34
[2023-06-04 10:01] VITALS: BP 134/82; BMI 27.6
== END 2023-06-04 10:35 | disposition home or self-care (01) ==
PROVIDERS: PCP Internal Medicine; Visit Provider Internal Medicine
DX: Z00.00 Encounter for general adult medical examination without abnormal findings (principal); E11.9 Type 2 diabetes mellitus without complications; E55.9 Vitamin D deficiency, unspecified; I10 Essential (primary) hypertension
CPT/HCPCS: 83036; 99396

== ENCOUNTER 2023-06-04 10:41 | Outpatient (REF) | payer OTHER, SELFPAY ==
[2023-06-04 11:38] LABS: Alanine Aminotransferase 17 U/L (0-40); Alkaline Phosphatase 83 U/L (39-117); Anion Gap 10 (12-20); Aspartate Amino Transferase 15 U/L (5-37); Bilirubin Total 0.3 mg/dL (0.0-1.0); Blood Urea Nitrogen 10 mg/dL (9-16); Calcium 9.6 mg/dL (8.4-10.2); Carbon Dioxide 27 mmol/L (22-29); Chloride 107 mmol/L (96-108); Cholesterol 199 mg/dL (<200); Estimated Glomerular Filt Rate > 60; Glucose Fasting 161 mg/dL (60-99); HDL Cholesterol 39 mg/dL (>40); LDL Cholesterol Calculated 143 mg/dL (<100); Potassium 4.3 mmol/L (3.3-5.1); Sodium 140 mmol/L (135-145); Total Protein 7.1 g/dL (6.5-8.0); Triglycerides 88 mg/dL (<150)
[2023-06-04 11:53] LABS: Vitamin D 25-OH Total 23.6 ng/mL (>30)
[2023-06-04 12:20] LABS: Creatinine Urine 168.57 mg/dL; Microalbum/Creatinine Ratio Ur 5.3 ug/mg cr (<30)
== END 2023-06-04 10:42 | disposition home or self-care (01) ==
LOC: HO.LAB 10:41
PROVIDERS: Visit Provider Internal Medicine
DX: E11.9 Type 2 diabetes mellitus without complications (principal); E55.9 Vitamin D deficiency, unspecified; E78.5 Hyperlipidemia, unspecified; I10 Essential (primary) hypertension
CPT/HCPCS: 36415; 80053; 80061; 82043; 82306; 82570

== ENCOUNTER 2023-10-12 10:02 | Outpatient (AMB) | payer OTHER, SELFPAY ==
--- NOTE | 2023-10-12 10:05 | A.OFFPC_ITS ---
Vital Signs 10/12/23 10:09 Height 5 ft 11 in Weight 203 lb BMI 28.3 BP 134/80 Blood Pressure Location Lt brachial Position Sitting Intake Visit Reasons: dm Intake Note: Patient here for a follow up DM Cold Strip Feeder Required: No Accompanied by: Self / Same As Patient Allergies No Known Allergies Allergy (Verified 10/12/23 10:25) Medication List - Last Reconciled 10/12/23 by Marisol Ribeiro MD atorvastatin 80 mg PO BEDTIME 90 days cholecalciferol (vitamin D3) 25 mcg PO DAILY 90 days empagliflozin (Jardiance) 10 mg PO DAILY 30 days metformin 1,000 mg PO BID 90 days Tobacco use date assessed: 06/04/23 Dental Screening Dental Screen Date: 06/04/23 HPI HPI Comments History of Present Illness Details This is a 58-year-old male with diabetes mellitus type 2, mixed hyperlipidemia and low vitamin-D that comes today for follow-up on his condition s. A1c elevated and he has not had Jardiance yet. Lipid panel will be order and his LDL goal should be less than 70. On vitamin-D supplements for his low vitamin-D. He denies any chest pain or shortness on breath. [facility] Medical History (Updated 10/12/23 @ 12:00 by Marisol Ribeiro MD) Sciatica History of renal calculi HTN (hypertension) Mixed hyperlipidemia Diabetes mellitus Surgical History History of herniorrhaphy History of esophagogastroduodenoscopy (EGD) Family History Father Diabetes Mother No problems noted. Maternal Grandmother No problems noted. Maternal Grandfather Stroke Paternal Grandmother Diabetes Paternal Grandfather No problems noted. Social History Housing: Apartment Are you a primary senior care specialist to a significant other at home: No Do you presently have visiting nurse or other home services: No Alcohol intake: never Patient Tobacco Use Status: Never used Tobacco Tobacco use type: Cigarette e-Cigarette/Vaping Use: Never Used Second Hand Smoke Exposure: No service: No Current occupational status: employed Current occupational exposures/hazards: No Cognitive needs: No Hearing needs: No Vision needs: Yes Questionnaire Thrive Questionnaire Date Thrive assessed: 06/04/23 DAYLIN-7 AMB Questionnaire DAYLIN-7 Date DAYLIN - 7 assessed: 06/04/23 Source: Developed by Drs. Raman Villarreal, Hilary Rosales, Chava Guzman and colleagues, with an educational giselle from [employer]. Review of Systems Const All systems reviewed & are unremarkable except as noted in HPI and below Card Denies chest pain at rest, Denies chest pain with activity, Denies edema, Denies irregular heart rhythm, Denies claudication, Denies dyspnea, Denies dyspnea on exertion, Denies orthopnea, Denies paroxysmal nocturnal dyspnea and Denies slow heart rate Resp Denies cough, Denies dyspnea and Denies dyspnea on exertion GI Denies abdominal pain, Denies change in bowel habits, Denies excessive flatus, Denies nausea and Denies vomiting Physical exam (Primary Care) Vital Signs: Last Vital Signs BP 134/80 10/12/23 10:09 BMI result Body Mass Index 28.3 Tobacco/Smoking Status: Tobacco use Status Tobacco use date assessed 06/04/23 10/12/23 10:07 Patient Tobacco Use Status Never used Tobacco 10/12/23 10:07 Tobacco use type Cigarette 10/12/23 10:07 e-Cigarette/Vaping Use Never Used 10/12/23 10:07 Thrive Assessment: Date of Thrive Assessment Date Thrive assessed 06/04/23 10/12/23 10:07 Resp Effort & Inspection: normal respiratory effort Auscultation: clear to auscultation bilaterally Cardio Jugular venous distension: no JVD Rate: regular rate Rhythm: regular rhythm Heart sounds: S1 normal heart sound present and S2 normal heart sound present Extrem General: Yes full ROM Results AMB Hemoglobin A1c AMB Hemoglobin A1c 8.7 % Last Edit by MARY JO Comer on 10/12/23 10:1 6 Results Reviewed Results Reviewed: Laboratory Last Values Hgb A1c (Clinic) 8.7 % (4.0-6.0) H 10/12/23 10:05 Assessment and Plan Assessment & Plan (1) Diabetes mellitus: Code(s): E11.9 - Type 2 diabetes mellitus without complications Qualifiers: Diabetes mellitus type: type 2 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 Start Jardiance. A1c goal is equal or less than 7%. (2) Mixed hyperlipidemia: Code(s): E78.2 - Mixed hyperlipidemia Plan: Continue statins. Repeat lipid panel. LDL goal is less than 70. (3) Hypovitaminosis D: Code(s): E55.9 - Vitamin D deficiency, unspecified Plan: Continue vitamin-D supplements. Orders: Orders AMB Hemoglobin A1c Today E11.9 - Type 2 diabetes mellitus without complications Lipid Panel Today E78.5 - Hyperlipidemia, unspecified Microalbumin, Random (w Creat) Today E11.9 - Type 2 diabetes mellitus without complications Vitamin D 25-OH Total Today E55.9 - Vitamin D deficiency, unspecified Comprehensive [place]. 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
[2023-10-12 10:09] VITALS: BP 134/80; BMI 28.3
== END 2023-10-12 10:32 | disposition home or self-care (01) ==
PROVIDERS: PCP Internal Medicine; Visit Provider Internal Medicine
DX: E11.65 Type 2 diabetes mellitus with hyperglycemia (principal); E78.2 Mixed hyperlipidemia; E55.9 Vitamin D deficiency, unspecified; E11.9 Type 2 diabetes mellitus without complications
CPT/HCPCS: 83036; 99213; G2211

== ENCOUNTER 2023-10-12 10:39 | Outpatient (REF) | payer OTHER, SELFPAY ==
[2023-10-12 13:48] LABS: Alanine Aminotransferase 25 U/L (0-40); Albumin Level 4.2 g/dL (3.5-5.0); Alkaline Phosphatase 103 U/L (39-117); Anion Gap 14 (12-20); Aspartate Amino Transferase 15 U/L (5-37); Bilirubin Total 0.5 mg/dL (0.0-1.0); Blood Urea Nitrogen 12 mg/dL (9-16); Calcium 9.5 mg/dL (8.4-10.2); Carbon Dioxide 25 mmol/L (22-29); Chloride 107 mmol/L (96-108); Cholesterol 117 mg/dL (<200); Estimated Glomerular Filt Rate > 60; Glucose Fasting 168 mg/dL (60-99); HDL Cholesterol 38 mg/dL (>40); LDL Cholesterol Calculated 63 mg/dL (<100); Sodium 142 mmol/L (135-145); Total Protein 7.2 g/dL (6.5-8.0); Triglycerides 82 mg/dL (<150)
[2023-10-12 14:02] LABS: Microalbum/Creatinine Ratio Ur 7.3 ug/mg cr (<30)
[2023-10-12 15:05] LABS: Vitamin D 25-OH Total 28.8 ng/mL (>30)
== END 2023-10-12 10:40 | disposition home or self-care (01) ==
LOC: HO.LAB 10:39
PROVIDERS: PCP Internal Medicine; Visit Provider Internal Medicine
DX: E11.9 Type 2 diabetes mellitus without complications (principal); E55.9 Vitamin D deficiency, unspecified; E78.5 Hyperlipidemia, unspecified
CPT/HCPCS: 36415; 80053; 80061; 82043; 82306; 82570

== ENCOUNTER 2024-03-08 09:33 | Outpatient (AMB) | payer OTHER, SELFPAY ==
--- NOTE | 2024-03-08 09:39 | MHC.PC.OV ---
Vital Signs 03/08/24 09:50 03/08/24 11:10 Height 5 ft 11 in Weight 201 lb BMI 28.0 BP 150/98 H 150/95 H Blood Pressure Location Lt brachial Lt brachial Position Sitting Sitting Intake Visit Reasons: dm Intake Note: Patient here for a follow up DM Ct Scan Special Procedures Technologist Required: No Accompanied by: Self / Same As Patient Allergies No Known Allergies Allergy (Verified 03/08/24 10:09) Medication List - Last Reconciled 03/08/24 by Marisol Ribeiro MD atorvastatin 80 mg PO BEDTIME 90 days cholecalciferol (vitamin D3) 25 mcg PO DAILY 90 days empagliflozin (Jardiance) 10 mg PO DAILY 90 days metformin 1,000 mg PO BID 90 days Tobacco use date assessed: 06/04/23 Dental Screening Dental Screen Date: 03/08/24 Did you have a dental visit in the last 12 months?: No Did you have a dental problem in the last 6 months where you did not have access to dental care?: No Was dental information given to patient?: Patient has dentist HPI HPI Comments History of Present Illness Details The patient is a 58-year-old male presenting with medication management needs for Type 2 Diabetes Mellitus and Hyperlipidemia, as well as evaluation of back pain. The patient is currently on atorvastatin 80 mg for hyperlipidemia, with prior LDL cholesterol levels being below 70, indicating well-controlled cholesterol. However, a new prescription is required which has led to a lapse in medication. The patient is also taking metformin 1000 mg twice daily for diabetes, with a current Hemoglobin A1c level of 8.3%, indicating suboptimal control. There is a plan to start Jardiance 10 mg to better manage blood sugar levels. The patient reports no known drug allergies. The patient additionally reports experiencing back pain that began after a basketball practice incident involving his son, which likely resulted in a pinched nerve. The incident occurred on Thursday, and the patient describes pain radiating to the right leg. An x-ray was performed previously, but the patient has not undergone further diagnostics. The pain is persistent but manageable without medication; the patient prefers chiropractic intervention instead. The patient reports no fever, bowel or bladder incontinence associated with these symptoms. He also has elevated blood pressure and I will add lisinopril 5 mg once a day. Blood pressure will be recheck in 3 weeks by nurse navigator. Denies any chest pain or shortness on breath. [facility] Medical History Sciatica History of renal calculi HTN (hypertension) Mixed hyperlipidemia Diabetes mellitus Surgical History History of herniorrhaphy History of esophagogastroduodenoscopy (EGD) Family History Father Diabetes Mother No problems noted. Maternal Grandmother No problems noted. Maternal Grandfather Stroke Paternal Grandmother Diabetes Paternal Grandfather No problems noted. Social History Housing: Apartment Are you a primary caregiver assisted living to a significant other at home: No Do you presently have visiting nurse or other home services: No Alcohol intake: never Patient Tobacco Use Status: Never used Tobacco Tobacco use type: Cigarette e-Cigarette/Vaping Use: Never Used Second Hand Smoke Exposure: No service: No Current occupational status: employed Current occupational exposures/hazards: No Cognitive needs: No Hearing needs: No Vision needs: Yes Questionnaire Thrive Questionnaire Date Thrive assessed: 06/04/23 DAYLIN-7 AMB Questionnaire DAYLIN-7 Date DAYLIN - 7 assessed: 06/04/23 Source: Developed by Drs. Raman Villarreal, Hilary Rosales, Chava Guzman and colleagues, with an educational giselle from [employer]. Review of Systems Const All systems reviewed & are unremarkable except as noted in HPI and below Card Denies chest pain at rest, Denies chest pain with activity, Denies edema, Denies irregular heart rhythm, Denies claudication, Denies dyspnea, Denies dyspnea on exertion, Denies orthopnea, Denies paroxysmal nocturnal dyspnea and Denies slow heart rate Resp Denies cough, Denies dyspnea and Denies dyspnea on exertion Musc Reports back pain Physical exam (Primary Care) Vital Signs: Last Vital Signs BP 150/98 H 03/08/24 09:50 BMI result Body Mass Index 28.0 Tobacco/Smoking Status: Tobacco use Status Tobacco use date assessed 06/04/23 03/08/24 09:40 Patient Tobacco Use Status Never used Tobacco 03/08/24 09:40 Tobacco use type Cigarette 03/08/24 09:40 e-Cigarette/Vaping Use Never Used 03/08/24 09:40 Thrive Assessment: Date of Thrive Assessment Date Thrive assessed 06/04/23 03/08/24 09:40 Resp Effort & Inspection: normal respiratory effort Auscultation: clear to auscultation bilaterally Cardio Jugular venous distension: no JVD Rate: regular rate Rhythm: regular rhythm Heart sounds: S1 normal heart sound present and S2 normal heart sound present Extrem General: Yes full ROM Office Procedures Flu Questionnaire Does the patient have a severe egg allergy?: No Results AMB Hemoglobin A1c AMB Hemoglobin A1c 8.3 % Last Edit by MARY JO Comer on 03/08/24 09:57 Immunizations Fluarix Triv [id number] (PF) 45 mcg (15 mcg x 3)/0.5 mL IM syringe Performing Provider: Marisol Ribeiro MD [facility] [place] [facility] Documented (not given) by: MARY JO Comer on 03/08/24 09:53 Reason Not Given: Patient Refused Results Reviewed Results Reviewed: Laboratory Last Values Hgb A1c (Clinic) 8.3 % (4.0-6.0) H 03/08/24 09:38 Coding Level of Care Code Est Pt Level 4 (33227) Complex EM visit Add On G2211 Diagnoses Type 2 diabetes mellitus with hyperglycemia, without long-term current use of insulin E11.65 Diabetes mellitus type: type 2 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 Diabetes mellitus complication status: with hyperglycemia Essential hypertension I10 Mixed hyperlipidemia E78.2 Hypovitaminosis D E55.9 Lumbar pain M54.50 Time Spent (min) 24 Assessment & Plan Assessment & Plan (1) Diabetes mellitus: Code(s): E11.9 - Type 2 diabetes mellitus without complications Category: Medical Qualifiers: Diabetes mellitus type: type 2 Diabetes mellitus halfway insulin use: without long haul truck driver use Diabetes mellitus complication status: with hyperglycemia Qualified Code(s): E11.65 - Type 2 diabetes mellitus with hyperglycemia (2) Essential hypertension: Code(s): I10 - Essential (primary) hypertension Category: Medical (3) Mixed hyperlipidemia: Code(s): E78.2 - Mixed hyperlipidemia Category: Medical (4) Hypovitaminosis D: Code(s): E55.9 - Vitamin D deficiency, unspecified Category: Medical (5) Lumbar pain: Code(s): M54.50 - Low back pain, unspecified Category: Medical Plan - Type 2 Diabetes Mellitus: Increase Jardiance from 10 mg to 25 mg for better glycemic control. Continue metformin 1000 mg twice daily. Monitor A1c levels closely. - Hyperlipidemia: Restart atorvastatin 80 mg once prescription is renewed. Await further lipid panel once medication is resumed. - Essential Hypertension: Initiate lisinopril 5 mg for blood pressure control owing to concurrent diabetes. - Vitamin D Deficiency: Continue current supplementation. - Back Pain with Radicular Symptoms: Plan for chiropractic intervention as preferred by the patient. Monitor for any worsening symptoms or lack of improvement. Patient was informed and verbally consented to the use of an ambient scribe for clinic note documentation during this visit. Orders: Orders Influenza [id number] Immunization Today Z23 - Encounter for immunization Lipid Panel Today E78.5 - Hyperlipidemia, unspecified Comprehensive [place]. Panel Fast Today E11.65 - Type 2 diabetes mellitus with hyperglycemia AMB Hemoglobin A1c Today E11.65 - Type 2 diabetes mellitus with hyperglycemia Microalbumin, Random (w Creat) Today R80.9 - Proteinuria, unspecified Vitamin D 25-OH Total Today E55.9 - Vitamin D deficiency, unspecified Medications: Refilled metformin 1,000 mg PO BID 180 tabs 1RF 90 days E11.9 - Type 2 diabetes mellitus without complications cholecalciferol (vitamin D3) 25 mcg PO DAILY 90 caps 1RF 90 days atorvastatin 80 mg PO BEDTIME 90 tabs 3RF 90 days E78.2 - Mixed hyperlipidemia empagliflozin (Jardiance) 10 mg PO DAILY 90 tabs 3RF 90 days E11.9 - Type 2 diabetes mellitus without complications Patient Instructions: - Begin taking Jardiance 10 mg daily starting today. - Continue current dose of metformin and vitamin D supplements. - Visit a chiropractor for back pain as discussed, and observe for any improvement or deterioration. - Arrange to have the atorvastatin prescription renewed and resumed immediately. - Schedule a follow-up visit in three weeks to recheck blood pressure and adherence to the new medication regimen. - Anticipate potential laboratory work next week for further diabetes and cholesterol evaluation.
[2024-03-08 09:50] VITALS: BP 150/98; BMI 28.0
[2024-03-08 11:10] VITALS: BP 150/95
== END 2024-03-08 10:18 | disposition home or self-care (01) ==
PROVIDERS: PCP Internal Medicine; Visit Provider Internal Medicine
DX: E11.65 Type 2 diabetes mellitus with hyperglycemia (principal); I10 Essential (primary) hypertension; E78.2 Mixed hyperlipidemia; E55.9 Vitamin D deficiency, unspecified; M54.50 Low back pain, unspecified; Z23 Encounter for immunization

== ENCOUNTER → 2024-03-08 09:33 | Outpatient (BNVA) | payer OTHER, SELFPAY | PROVIDERS: PCP Internal Medicine; Visit Provider Internal Medicine | DX: E11.65 Type 2 diabetes mellitus with hyperglycemia (principal); I10 Essential (primary) hypertension; E78.2 Mixed hyperlipidemia; E55.9 Vitamin D deficiency, unspecified; M54.50 Low back pain, unspecified; Z79.84 Long term (current) use of oral hypoglycemic drugs; Z79.899 Other long term (current) drug therapy; Z28.21 Immunization not carried out because of patient refusal | CPT/HCPCS: 83036; 90471 ==

== ENCOUNTER 2024-06-13 09:59 | Outpatient (REF) | payer OTHER, SELFPAY ==
[2024-06-13 12:17] LABS: Microalbumin Urine < 5.0 mg/L
[2024-06-13 12:31] LABS: Vitamin D 25-OH Total 31.6 ng/mL (>30)
[2024-06-13 12:53] LABS: Anion Gap 12 (12-20)
[2024-06-13 12:58] LABS: Alanine Aminotransferase 33 U/L (0-40); Albumin Level 4.4 g/dL (3.5-5.0); Alkaline Phosphatase 101 U/L (39-117); Aspartate Amino Transferase 24 U/L (5-37); Bilirubin Total 0.5 mg/dL (0.0-1.0); Blood Urea Nitrogen 11 mg/dL (9-16); Carbon Dioxide 26 mmol/L (22-29); Chloride 108 mmol/L (96-108); Cholesterol 116 mg/dL (<200); Estimated Glomerular Filt Rate > 60; Glucose Fasting 159 mg/dL (60-99); HDL Cholesterol 38 mg/dL (>40); LDL Cholesterol Calculated 63 mg/dL (<100); Potassium 4.8 mmol/L (3.3-5.1); Sodium 141 mmol/L (135-145); Triglycerides 77 mg/dL (<150)
== END 2024-06-13 10:00 | disposition home or self-care (01) ==
LOC: HO.LAB 09:59
PROVIDERS: PCP Internal Medicine; Visit Provider Internal Medicine
DX: Z00.00 Encounter for general adult medical examination without abnormal findings (principal); E11.65 Type 2 diabetes mellitus with hyperglycemia; R80.9 Proteinuria, unspecified; E78.5 Hyperlipidemia, unspecified; E55.9 Vitamin D deficiency, unspecified; Z79.84 Long term (current) use of oral hypoglycemic drugs
CPT/HCPCS: 36415; 80053; 80061; 82043; 82306; 82570; 83036; 96127

== ENCOUNTER 2024-06-13 09:59 | Outpatient (AMB) | payer OTHER, SELFPAY ==
--- NOTE | 2024-06-13 10:07 | A.OFFPC_ITS ---
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: No Accompanied by: Self / Same As Patient Allergies No Known Allergies Allergy (Verified 06/13/24 10:31) Medication List - Last Reconciled 06/13/24 by Marisol Ribeiro MD atorvastatin 80 mg PO BEDTIME 90 days cholecalciferol (vitamin D3) 25 mcg PO DAILY 90 days empagliflozin (Jardiance) 10 mg PO DAILY 90 days lisinopril 5 mg PO DAILY 90 days metformin 1,000 mg PO BID 90 days Tobacco use date assessed: 06/13/24 Dental Screening Dental Screen Date: 06/13/24 Did you have a dental visit in the last 12 months?: Yes Did you have a dental problem in the last 6 months where you did not have access to dental care?: No Was dental information given to patient?: Patient has dentist HPI HPI Comments History of Present Illness Details This is a 58-year-old male with diabetes mellitus type 2 that comes for his physical exam. A1c elevated and I will increase Jardiance from 10 mg to 25 mg. Last diabetic eye exam was 4 years ago and will be referred to Ophthalmology. He declines colonoscopy, Cologuard or any screening for colon cancer. Last Tdap vaccine was 2016. Declines flu vaccine. [facility] Medical History Sciatica History of renal calculi HTN (hypertension) Mixed hyperlipidemia Diabetes mellitus Surgical History History of herniorrhaphy History of esophagogastroduodenoscopy (EGD) Family History Father Diabetes Mother No problems noted. Maternal Grandmother No problems noted. Maternal Grandfather Stroke Paternal Grandmother Diabetes Paternal Grandfather No problems noted. Social History Housing: Apartment Are you a primary healthcare science specialist to a significant other at home: No Do you presently have visiting nurse or other home services: No Alcohol intake: never Patient Tobacco Use Status: Never used Tobacco e-Cigarette/Vaping Use: Never Used Second Hand Smoke Exposure: No service: No Current occupational status: employed Current occupational exposures/hazards: No Cognitive needs: No Hearing needs: No Vision needs: Yes Questionnaire PHQ-9 Over the last 2 weeks, how often have you been bothered by any of the following problems? 1. Little interest or pleasure in doing things: not at all 2. Feeling down, depressed, or hopeless: not at all 3. Trouble falling or staying asleep, or sleeping too much: not at all 4. Feeling tired or having little energy: not at all 5. Poor appetite or overeating: not at all 6. Feeling bad about yourself - or that you are a failure or have let yourself or your family down: not at all 7. Trouble concentrating on things, such as reading the newspaper or watching television: not at all 8. Moving or speaking so slowly that other people could have noticed. Or the opposite - being so fidgety or restless that you have been moving around a lot more than usual: not at all 9. Thoughts that you would be better off or of hurting yourself in some way: not at all Total score: 0 Depression Screening Interpretation: Negative Depression Screening Done: Yes 44903 - PHQ-9 Billing: Yes Source: Developed by Drs. Raman Villarreal, Hilary Rosales, Chava Guzman and colleagues, with an educational giselle from [employer]. Thrive Questionnaire Date Thrive assessed: 06/13/24 I am a: Patient What is your living situation today?: I have a steady place to live Within the past 12 months, did the food you bought not last and you didn't have the money to get more?: Never true Within the past 12 months, did you worry whether your food would run out before you got money to buy more?: Never true Do you have trouble paying for medicines?: No Do you have trouble getting transportation to medical appointments?: No Do you have trouble paying your heating and electricity bill?: No Do you have trouble taking care of your child, family member or friend?: No Do you have trouble with day-to-day activities such as bathing, preparing meals, shopping, managing finances, etc.?: No Are you currently unemployed and looking for a job?: No Are you interested in more education?: No Please select the resources that you would like help with: None Currently or been in a relationship where the following occur: No concerns reported THRIVE Score: 0 AUDIT C Alcohol Use Questionnaire (AUDIT-C) 1. How often do you have a drink containing alcohol?: Never Total Score: 0 Score Reviewed/Action Taken: No DAYLIN-7 AMB Questionnaire DAYLIN-7 Date DAYLIN - 7 assessed: 06/13/24 Feeling nervous, anxious, or on edge: 0 = Not at all Not being able to stop or control worryin = Not at all Worrying too much about different things: 0 = Not at all Trouble relaxin = Not at all Being so restless that it is hard to sit still: 0 = Not at all Becoming easily annoyed or irritable: 0 = Not at all Feeling afraid as if something awful might happen: 0 = Not at all Total DAYLIN-7 score (0-4 normal; 5-9 mild; 10-14 moderate; 15-21 severe): 0 Source: Developed by Drs. Raman Villarreal, Hilary Rosales, Chava Guzman and colleagues, with an educational giselle from [employer]. DAYLIN-7 Assessment Billing DAYLIN-7 Assessment Tool: DAYLIN-7 Assessment 40666 Review of Systems Const All systems reviewed & are unremarkable except as noted in HPI and below Card Denies chest pain at rest, Denies chest pain with activity, Denies edema, Denies irregular heart rhythm, Denies claudication, Denies dyspnea, Denies dyspnea on exertion, Denies orthopnea, Denies paroxysmal nocturnal dyspnea and Denies slow heart rate Resp Denies cough, Denies dyspnea and Denies dyspnea on exertion GI Denies abdominal pain, Denies change in bowel habits, Denies excessive flatus, Denies nausea and Denies vomiting Denies urinary hesitancy, Denies urinary incontinence and Denies urinary urgency Neuro Denies behavioral changes and Denies lack of coordination Psych Denies behavioral changes Endo Denies cold intolerance Ghulam/Lymph Denies easy bleeding and Denies easy bruising Physical exam (Primary Care) Vital Signs: Last Vital Signs BP 122/80 06/13/24 10:14 BMI result Body Mass Index 27.1 Tobacco/Smoking Status: Tobacco use Status Tobacco use date assessed 06/13/24 06/13/24 10:09 Patient Tobacco Use Status Never used Tobacco 06/13/24 10:07 Tobacco use type 06/13/24 10:09 e-Cigarette/Vaping Use Never Used 06/13/24 10:07 PHQ-9: PHQ-9 Score PHQ-9: Total score 0 06/13/24 13:14 Depression Screening Interpretation: Negative Thrive Assessment: Date of Thrive Assessment Date Thrive assessed 06/13/24 06/13/24 10:09 Currently or been in a relationship where the following occur: No concerns reported [facility] Head: Yes normal to inspection, Yes normocephalic and Yes atraumatic Ears: external ears normal Eyes General: appearance normal, both eyes and all related structures Eyelids: Yes eyelids normal Conjunctivae: conjunctivae normal Neck Neck: Yes normal visual inspection and Yes supple Resp Effort & Inspection: normal respiratory effort Auscultation: clear to auscultation bilaterally Cardio Jugular venous distension: no JVD Rate: regular rate Rhythm: regular rhythm Heart sounds: S1 normal heart sound present and S2 normal heart sound present GI Inspection: Yes normal to inspection Palpation (GI): Soft to palpation and nontender Auscultation: normal bowel sounds Skin General skin exam: no rashes or lesions noted Neuro General: no focal motor deficits Extrem General: Yes full ROM Psych Appearance: grossly normal Results AMB Hemoglobin A1c AMB Hemoglobin A1c 8.2 % Last Edit by MARY JO Comer on 06/13/24 10:3 9 Results Reviewed Results Reviewed: Laboratory Last Values Hgb A1c (Clinic) 8.2 % (4.0-6.0) H 06/13/24 10:17 Coding Level of Care Code Est Pt Level 3 (80214) Est Pt Prev Care 40-64y(98225) Diagnoses Physical exam Z00.00 Type 2 diabetes mellitus with hyperglycemia, without long-term current use of insulin E11.65 Diabetes mellitus type: type 2 Diabetes mellitus fpc insulin use: without watermelon harvesting supervisor use Diabetes mellitus complication status: with hyperglycemia Additional Codes DAYLIN-7 Assessment Billing - DAYLIN-7 Assessment Tool: DAYLIN-7 Assessment 60136 ([id number]) PHQ-9 - 40606 - PHQ-9 Billing: Yes ([id number]) Time Spent (min) 33 Assessment & Plan Assessment & Plan (1) Physical exam: Code(s): Z00.00 - Encounter for general adult medical examination without abnormal findings Category: Medical Plan: Repeat in a year. (2) Diabetes mellitus: Code(s): E11.9 - Type 2 diabetes mellitus without complications Category: Medical Qualifiers: Diabetes mellitus type: type 2 Diabetes mellitus watermelon harvesting supervisor insulin use: without fpc use Diabetes mellitus complication status: with hyperglycemia Qualified Code(s): E11.65 - Type 2 diabetes mellitus with hyperglycemia Plan: Continue metformin. Increase Jardiance. A1c goal is equal or less than 7%. Referred to Ophthalmology. Orders: Orders AMB Hemoglobin A1c Today E11.65 - Type 2 diabetes mellitus with hyperglycemia Lipid Panel Today E78.5 - Hyperlipidemia, unspecified Microalbumin, Random (w Creat) Today R80.9 - Proteinuria, unspecified Comprehensive [place]. Panel Fast Today Z00.00 - Encounter for general adult medical examination without abnormal findings Vitamin D 25-OH Total Today E55.9 - Vitamin D deficiency, unspecified Referrals Ophthalmology Referral E11.65 - Type 2 diabetes mellitus with hyperglycemia Medications: New empagliflozin (Jardiance) 25 mg PO DAILY 90 days 90 tabs 3RF Discontinued empagliflozin (Jardiance) Discontinued Reason: Patient Completed Course 10 mg PO DAILY 90 days 90 tabs 3RF E11.9 - Type 2 diabetes mellitus without complications
[2024-06-13 10:14] VITALS: BP 122/80; BMI 27.1
== END 2024-06-13 10:43 | disposition home or self-care (01) ==
PROVIDERS: PCP Internal Medicine; Visit Provider Internal Medicine
DX: Z00.00 Encounter for general adult medical examination without abnormal findings (principal); E11.65 Type 2 diabetes mellitus with hyperglycemia

== ENCOUNTER 2024-11-14 09:47 | Outpatient (AMB) | payer OTHER, SELFPAY ==
--- NOTE | 2024-11-14 10:14 | MHC.PC.OV ---
Vital Signs 11/14/24 10:22 Height 5 ft 11 in Weight 200 lb BMI 27.9 BP 122/80 Blood Pressure Location Lt brachial Position Sitting Intake Visit Reasons: 5 month follow up Intake Note: Patient here for a 5 month follow up Lobbyist Required: No Accompanied by: Self / Same As Patient Allergies No Known Allergies Allergy (Verified 11/14/24 10:35) Medication List - Last Reconciled 11/14/24 by Marisol Ribeiro MD atorvastatin 80 mg PO BEDTIME 90 days cholecalciferol (vitamin D3) 25 mcg PO DAILY 90 days empagliflozin (Jardiance) 25 mg PO DAILY 90 days lisinopril 5 mg PO DAILY 90 days metformin 1,000 mg PO BID 90 days Tobacco use date assessed: 06/13/24 Dental Screening Dental Screen Date: 06/13/24 HPI HPI Comments History of Present Illness Details The patient is a 59-year-old male presenting with Type 2 Diabetes Mellitus management. The patient's A1c level has increased from 8.2 to 8.5, indicating a need for intervention. The patient is currently on metformin and atorvastatin, and previously used Jardiance, which was beneficial but costly. On vitamin-D supplements for his low vitamin-D. The patient also has a history of hyperlipidemia, which is currently well-managed with atorvastatin. The cholesterol levels are reported to be good, with no need for adjustments. Hypertension is another condition being managed, with the patient previously on lisinopril 5 mg. Due to well-controlled blood pressure, the dose is being reduced to 2.5 mg to protect renal function. [facility] Medical History Sciatica History of renal calculi HTN (hypertension) Mixed hyperlipidemia Diabetes mellitus Surgical History History of herniorrhaphy History of esophagogastroduodenoscopy (EGD) Family History Father Diabetes Mother No problems noted. Maternal Grandmother No problems noted. Maternal Grandfather Stroke Paternal Grandmother Diabetes Paternal Grandfather No problems noted. Social History Housing: Apartment Are you a primary health care assistant to a significant other at home: No Do you presently have visiting nurse or other home services: No Alcohol intake: never Patient Tobacco Use Status: Never used Tobacco e-Cigarette/Vaping Use: Never Used Second Hand Smoke Exposure: No service: No Current occupational status: employed Current occupational exposures/hazards: No Cognitive needs: No Hearing needs: No Vision needs: Yes Questionnaire Thrive Questionnaire Date Thrive assessed: 06/13/24 I am a: Patient What is your living situation today?: I have a steady place to live Within the past 12 months, did the food you bought not last and you didn't have the money to get more?: Never true Within the past 12 months, did you worry whether your food would run out before you got money to buy more?: Never true Do you have trouble paying for medicines?: No Do you have trouble getting transportation to medical appointments?: No Do you have trouble paying your heating and electricity bill?: No Do you have trouble taking care of your child, family member or friend?: No Do you have trouble with day-to-day activities such as bathing, preparing meals, shopping, managing finances, etc.?: No Are you currently unemployed and looking for a job?: No Are you interested in more education?: No Please select the resources that you would like help with: None Currently or been in a relationship where the following occur: No concerns reported THRIVE Score: 0 DAYLIN-7 AMB Questionnaire DAYLIN-7 Date DAYLIN - 7 assessed: 06/13/24 Source: Developed by Drs. Raman Villarreal, Hilary Rosales, Chava Guzman and colleagues, with an educational giselle from [employer]. Review of Systems Const All systems reviewed & are unremarkable except as noted in HPI and below Card Denies chest pain at rest, Denies chest pain with activity, Denies edema, Denies irregular heart rhythm, Denies claudication, Denies dyspnea, Denies dyspnea on exertion, Denies orthopnea, Denies paroxysmal nocturnal dyspnea and Denies slow heart rate Resp Denies cough, Denies dyspnea and Denies dyspnea on exertion GI Denies abdominal pain, Denies change in bowel habits, Denies excessive flatus, Denies nausea and Denies vomiting Denies urinary hesitancy, Denies urinary incontinence and Denies urinary urgency Musc Denies abnormal gait, Denies atrophy, Denies deformity and Denies limited range of motion Skin/Breast Denies bleeding lesions, Denies changing lesions and Denies rash Neuro Denies abnormal gait and Denies lack of coordination Physical exam (Primary Care) Vital Signs: Last Vital Signs BP 122/80 11/14/24 10:22 BMI result Body Mass Index 27.9 Tobacco/Smoking Status: Tobacco use Status Tobacco use date assessed 06/13/24 11/14/24 10:16 Patient Tobacco Use Status Never used Tobacco 11/14/24 10:16 Tobacco use type 06/13/24 10:41 e-Cigarette/Vaping Use Never Used 11/14/24 10:16 Thrive Assessment: Date of Thrive Assessment Date Thrive assessed 06/13/24 11/14/24 10:16 Currently or been in a relationship where the following occur: No concerns reported Resp Effort & Inspection: normal respiratory effort Auscultation: clear to auscultation bilaterally Cardio Jugular venous distension: no JVD Rate: regular rate Rhythm: regular rhythm Heart sounds: S1 normal heart sound present and S2 normal heart sound present Extrem General: Yes full ROM Results AMB Hemoglobin A1c AMB Hemoglobin A1c 8.5 % Last Edit by MARY JO Comer on 11/14/24 10:34 Coding Level of Care Code Est Pt Level 4 (01423) Complex EM visit Add On G2211 Diagnoses Type 2 diabetes mellitus with hyperglycemia, without long-term current use of insulin E11.65 Diabetes mellitus type: type 2 Diabetes mellitus intermediate insulin use: without c iron worker use Diabetes mellitus complication status: with hyperglycemia Mixed hyperlipidemia E78.2 Hypovitaminosis D E55.9 Essential hypertension I10 Time Spent (min) 22 Assessment & Plan Assessment & Plan (1) Diabetes mellitus: Code(s): E11.9 - Type 2 diabetes mellitus without complications Category: Medical Qualifiers: Diabetes mellitus type: type 2 Diabetes mellitus intermediate insulin use: without c iron worker use Diabetes mellitus complication status: with hyperglycemia Qualified Code(s): E11.65 - Type 2 diabetes mellitus with hyperglycemia (2) Mixed hyperlipidemia: Code(s): E78.2 - Mixed hyperlipidemia Category: Medical (3) Hypovitaminosis D: Code(s): E55.9 - Vitamin D deficiency, unspecified Category: Medical (4) Essential hypertension: Code(s): I10 - Essential (primary) hypertension Category: Medical Plan The plan for managing the patient's Type 2 Diabetes Mellitus includes considering a referral to endocrinology for further adjustment of medications. The patient is advised to restart Jardiance if possible, despite the cost, as it has been beneficial in the past. The patient's hypertension management will involve reducing the lisinopril dose to 2.5 mg to maintain renal protection while keeping blood pressure controlled. For hyperlipidemia, the current regimen with atorvastatin will continue as cholesterol levels are satisfactory. The patient will have follow-up blood work in four months to monitor these conditions. Patient was informed and verbally consented to the use of an ambient scribe for clinic note documentation during this visit. Orders: Orders AMB Hemoglobin A1c Today E11.65 - Type 2 diabetes mellitus with hyperglycemia Microalbumin, Random (w Creat) 4 Months R80.9 - Proteinuria, unspecified Comprehensive [place]. Panel Fast 4 Months E11.65 - Type 2 diabetes mellitus with hyperglycemia Lipid Panel 4 Months E78.5 - Hyperlipidemia, unspecified Vitamin D 25-OH Total 4 Months E55.9 - Vitamin D deficiency, unspecified Medications: New lisinopril 2.5 mg PO DAILY 90 tabs 1RF 90 days Refilled empagliflozin (Jardiance) 25 mg PO DAILY 90 tabs 3RF 90 days Discontinued lisinopril Discontinued Reason: Patient Completed Course 5 mg PO DAILY 90 days 90 tabs 1RF
[2024-11-14 10:22] VITALS: BP 122/80; BMI 27.9
== END 2024-11-14 10:46 | disposition home or self-care (01) ==
LOC: HO.HMCH 09:48
PROVIDERS: PCP Internal Medicine; Visit Provider Internal Medicine
DX: E11.65 Type 2 diabetes mellitus with hyperglycemia (principal); E78.2 Mixed hyperlipidemia; E55.9 Vitamin D deficiency, unspecified; I10 Essential (primary) hypertension

== ENCOUNTER → 2024-11-14 09:47 | Outpatient (BNVA) | payer OTHER, SELFPAY | PROVIDERS: PCP Internal Medicine; Visit Provider Internal Medicine | DX: E11.65 Type 2 diabetes mellitus with hyperglycemia (principal); E55.9 Vitamin D deficiency, unspecified; E78.2 Mixed hyperlipidemia; I10 Essential (primary) hypertension; R80.9 Proteinuria, unspecified | CPT/HCPCS: 83036 ==

== ENCOUNTER 2025-03-20 09:35 | Outpatient (REF) | payer OTHER, SELFPAY ==
[2025-03-20 11:19] LABS: Alanine Aminotransferase 34 U/L (0-40); Albumin Level 4.6 g/dL (3.5-5.0); Alkaline Phosphatase 100 U/L (39-117); Anion Gap 10 (12-20); Aspartate Amino Transferase 26 U/L (5-37); Blood Urea Nitrogen 13 mg/dL (9-16); Calcium 10.0 mg/dL (8.4-10.2); Carbon Dioxide 25 mmol/L (22-29); Chloride 109 mmol/L (96-108); Cholesterol 115 mg/dL (<200); Estimated Glomerular Filt Rate > 60; HDL Cholesterol 35 mg/dL (>40); Potassium 4.1 mmol/L (3.3-5.1); Sodium 140 mmol/L (135-145); Total Protein 7.5 g/dL (6.5-8.0); Triglycerides 48 mg/dL (<150)
[2025-03-20 11:59] LABS: Microalbum/Creatinine Ratio Ur 4.2 ug/mg cr (<30)
== END 2025-03-20 09:36 | disposition home or self-care (01) ==
LOC: HO.LAB 09:35
PROVIDERS: PCP Internal Medicine; Visit Provider Internal Medicine
DX: E11.65 Type 2 diabetes mellitus with hyperglycemia (principal); E11.69 Type 2 diabetes mellitus with other specified complication; E78.5 Hyperlipidemia, unspecified; R80.9 Proteinuria, unspecified; E55.9 Vitamin D deficiency, unspecified
CPT/HCPCS: 36415; 80053; 80061; 82043; 82306; 82570

== ENCOUNTER 2025-03-21 10:38 | Outpatient (AMB) | payer OTHER, SELFPAY ==
--- NOTE | 2025-03-21 11:06 | A.OFFPC_ITS ---
Vital Signs 03/21/25 11:07 Height 5 ft 11 in Weight 201 lb BMI 28.0 BP 122/88 Blood Pressure Location Lt brachial Position Sitting Pulse 68 Pulse Source Pulse Oximeter Temp 97.3 F Temp Source Temporal Artery Scan Pulse Oximetry (%) 98 Oxygen Delivery Method Room Air Intake Visit Reasons: 4mth f/u Intake Note: Patient is here to follow up on DM, HLD. Bullard Operator Required: No Sales Performance Manager: Not Required per policy Accompanied by: Self / Same As Patient Allergies No Known Allergies Allergy (Verified 03/21/25 11:22) Medication List - Last Reconciled 03/21/25 by Marisol Ribeiro MD atorvastatin 80 mg PO BEDTIME 90 days cholecalciferol (vitamin D3) 25 mcg PO DAILY 90 days empagliflozin (Jardiance) 25 mg PO DAILY 90 days lisinopril 2.5 mg PO DAILY 90 days metformin 1,000 mg PO BID 90 days Tobacco use date assessed: 03/21/25 Dental Screening Dental Screen Date: 06/13/24 HPI HPI Comments History of Present Illness Details The patient is a 59 year old individual presenting for follow-up of chronic conditions and evaluation of a new wrist lump. Regarding diabetes management, recent bloodwork shows an HbA1c of 8.2%, which is an improvement from a previous value of 8.5%. The patient is currently taking atorvastatin 80 mg, vitamin D, lisinopril 2.5 mg, and metformin twice daily. The patient is not taking Jardiance 25 mg as it was not approved by insurance. The patient's LDL cholesterol is 71 mg/dL, and vitamin D levels are near normal. Kidney function tests were noted to be good. The patient reports finding a new, non-painful bump on the wrist last week. The patient reports no known allergies to medications. [facility] Medical History (Updated 03/21/25 @ 11:29 by Marisol Ribeiro MD) Sciatica History of renal calculi HTN (hypertension) Mixed hyperlipidemia Diabetes mellitus Surgical History History of herniorrhaphy History of esophagogastroduodenoscopy (EGD) Family History Father Diabetes Mother No problems noted. Maternal Grandmother No problems noted. Maternal Grandfather Stroke Paternal Grandmother Diabetes Paternal Grandfather No problems noted. Social History Housing: Apartment Are you a primary career coach to a significant other at home: No Do you presently have visiting nurse or other home services: No Alcohol intake: never Patient Tobacco Use Status: Never used Tobacco e-Cigarette/Vaping Use: Never Used Second Hand Smoke Exposure: No service: No Current occupational status: employed Current occupational exposures/hazards: No Cognitive needs: No Hearing needs: No Vision needs: Yes Questionnaire Thrive Questionnaire Date Thrive assessed: 06/13/24 I am a: Patient What is your living situation today?: I have a steady place to live Within the past 12 months, did the food you bought not last and you didn't have the money to get more?: Never true Within the past 12 months, did you worry whether your food would run out before you got money to buy more?: Never true Do you have trouble paying for medicines?: No Do you have trouble getting transportation to medical appointments?: No Do you have trouble paying your heating and electricity bill?: No Do you have trouble taking care of your child, family member or friend?: No Do you have trouble with day-to-day activities such as bathing, preparing meals, shopping, managing finances, etc.?: No Are you currently unemployed and looking for a job?: No Are you interested in more education?: No Please select the resources that you would like help with: None Currently or been in a relationship where the following occur: No concerns reported THRIVE Score: 0 DAYLIN-7 AMB Questionnaire DAYLIN-7 Date DAYLIN - 7 assessed: 06/13/24 Source: Developed by Drs. Raman Villarreal, Hilary Rosales, Chava Guzman and colleagues, with an educational giselle from [employer]. Review of Systems Const All systems reviewed & are unremarkable except as noted in HPI and below Card Denies chest pain at rest, Denies chest pain with activity, Denies edema, Denies irregular heart rhythm, Denies claudication, Denies dyspnea, Denies dyspnea on exertion, Denies orthopnea, Denies paroxysmal nocturnal dyspnea and Denies slow heart rate Resp Denies cough, Denies dyspnea and Denies dyspnea on exertion GI Denies abdominal pain, Denies change in bowel habits, Denies excessive flatus, Denies nausea and Denies vomiting Physical exam (Primary Care) Vital Signs: Last Vital Signs Temp 97.3 F 03/21/25 11:07 Pulse 68 03/21/25 11:07 BP 122/88 03/21/25 11:07 Pulse Ox 98 03/21/25 11:07 Oxygen Delivery Method Room Air 03/21/25 11:07 BMI result Body Mass Index 28.0 Tobacco/Smoking Status: Tobacco use Status Tobacco use date assessed 03/21/25 03/21/25 11:14 Patient Tobacco Use Status Never used Tobacco 03/21/25 11:14 Tobacco use type 06/13/24 10:41 e-Cigarette/Vaping Use Never Used 03/21/25 11:14 Thrive Assessment: Date of Thrive Assessment Date Thrive assessed 06/13/24 03/21/25 11:14 Currently or been in a relationship where the following occur: No concerns reported Resp Effort & Inspection: normal respiratory effort Auscultation: clear to auscultation bilaterally Cardio Jugular venous distension: no JVD Rate: regular rate Rhythm: regular rhythm Heart sounds: S1 normal heart sound present and S2 normal heart sound present Extrem General: Yes full ROM Results AMB Hemoglobin A1c AMB Hemoglobin A1c 8.2 % Last Edit by MARY JO Bryson on 03/21/25 11:20 Results Reviewed Results Reviewed: Laboratory Last Values Hgb A1c (Clinic) 8.2 % (4.0-6.0) H 03/21/25 11:05 Coding Level of Care Code Est Pt Level 4 (40034) Diagnoses Essential hypertension I10 Type 2 diabetes mellitus with hyperglycemia, without long-term current use of insulin E11.65 Diabetes mellitus type: type 2 Diabetes mellitus 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 machine operator helper insulin use: without longwall machine operator helper use Diabetes mellitus complication status: with hyperglycemia Mixed hyperlipidemia E78.2 Ganglion cyst of dorsum of right wrist M67.431 Time Spent (min) 21 Assessment & Plan Assessment & Plan (1) Essential hypertension: Code(s): I10 - Essential (primary) hypertension Category: Medical (2) Diabetes mellitus: Code(s): E11.9 - Type 2 diabetes mellitus without complications Category: Medical Qualifiers: Diabetes mellitus type: type 2 Diabetes mellitus longwall machine operator helper insulin use: without longwall machine operator helper use Diabetes mellitus complication status: with hyperglycemia Qualified Code(s): E11.65 - Type 2 diabetes mellitus with hyperglycemia (3) Mixed hyperlipidemia: Code(s): E78.2 - Mixed hyperlipidemia Category: Medical (4) Ganglion cyst of dorsum of right wrist: Code(s): M67.431 - Ganglion, right wrist Category: Medical Plan Plan 1. Type 2 Diabetes Mellitus The patient's HbA1c has improved to 8.2% from 8.5%, but glycemic control remains suboptimal on metformin alone. The patient has been unable to take Jardiance due to insurance denial. A new, inexpensive, once-daily medication will be added to the regimen to provide an additional boost to glycemic control. Follow-up for HbA1c will occur at the next visit in June. 2. Ganglion Cyst Of Wrist The patient presented with a new, non-painful bump on the wrist that appeared last week, which is clinically consistent with a ganglion cyst. The patient was reassured about the benign nature of the cyst. An x-ray of the wrist will be ordered for confirmation. Offered the option to have the x-ray done today. 3. Hyperlipidemia The patient's lipid panel shows an LDL of 71 mg/dL, which is well-controlled on atorvastatin. The patient will continue the current regimen of atorvastatin, lisinopril, and vitamin D. 4. Hypertension Continue lisinopril. Blood pressure goal is equal or less than 130/80. Orders: Orders AMB Hemoglobin A1c Today E11.65 - Type 2 diabetes mellitus with hyperglycemia Medications: New linagliptin (Tradjenta) 5 mg PO DAILY 90 tabs 0RF 90 days Refilled metformin 1,000 mg PO BID 180 tabs 1RF 90 days E11.9 - Type 2 diabetes mellitus without complications lisinopril 2.5 mg PO DAILY 90 tabs 1RF 90 days atorvastatin 80 mg PO BEDTIME 90 tabs 3RF 90 days E78.2 - Mixed hyperlipidemia cholecalciferol (vitamin D3) 25 mcg PO DAILY 90 caps 1RF 90 days Discontinued empagliflozin (Jardiance) Discontinued Reason: Patient Completed Course 25 mg PO DAILY 90 days 90 tabs 3RF
[2025-03-21 11:07] VITALS: BP 122/88; PULSE 68; TEMP 36.3; O2SAT 98; BMI 28.0
== END 2025-03-21 11:31 | disposition home or self-care (01) ==
LOC: HO.HMCH 10:39
PROVIDERS: PCP Internal Medicine; Visit Provider Internal Medicine
DX: I10 Essential (primary) hypertension (principal); E11.65 Type 2 diabetes mellitus with hyperglycemia; E78.2 Mixed hyperlipidemia; M67.431 Ganglion, right wrist

== ENCOUNTER 2025-03-21 10:38 | Outpatient (REF) | payer OTHER, SELFPAY ==
--- NOTE | ~2025-03-21 | XR_ITS ---
EXAMINATION: XR WRIST 3 OR MORE VIEWS RIGHT HISTORY: M67.431 - Ganglion, right wrist COMPARISON: Correlation is made to plain films of the right hand dated 09/02/2018. FINDINGS: Four views of the right wrist including a scaphoid view are submitted. Osseous mineralization is normal. There is no fracture or dislocation. There is mild narrowing of the 1st carpometacarpal joint. The soft tissues are unremarkable. XR/XR wrist RT min 3V IMPRESSION: Mild narrowing of the 1st carpometacarpal joint. Otherwise unremarkable examination of the right wrist. Electronically signed by: Raman Bacon MD 03/21/2025 12:07 PM JESSICA
== END 2025-03-21 10:39 | disposition home or self-care (01) ==
LOC: HO.XRAY 10:38
PROVIDERS: PCP Internal Medicine; Visit Provider Internal Medicine
DX: M67.431 Ganglion, right wrist (principal); E11.9 Type 2 diabetes mellitus without complications
CPT/HCPCS: 73110; 83036

== ENCOUNTER → 2025-03-21 11:42 | Outpatient (BNV) | payer OTHER, SELFPAY | PROVIDERS: PCP Internal Medicine; Visit Provider Radiology Diagnostic Radiology | DX: M67.431 Ganglion, right wrist (principal); M18.11 Unilateral primary osteoarthritis of first carpometacarpal joint, right hand | CPT/HCPCS: 73110 ==